=== PATIENT | male | born 1970 | race Caucasian/White ===

== ENCOUNTER 2021-09-06 13:27 | Inpatient (IN) | payer OTHER ==
[2021-09-06 14:55] VITALS: BMI 22.3
[2021-09-06] MEDS ORDERED: MELATONIN 5 MG TABLETS PO PRN (17:45)
[2021-09-06] MEDS ORDERED: BENZOCAINE/MENTHOL (CHLORASEPTIC ) LOZENGE MM PRN (17:45)
[2021-09-06] MEDS ORDERED: IBUPROFEN 600 MG TABLET (FP) PO PRN (17:45)
[2021-09-06] MEDS ORDERED: DICYCLOMINE HCL 10 MG CAPSULE PO PRN (17:45)
[2021-09-06] MEDS ORDERED: ONDANSETRON *ODT* 4 MG TABLET SL PRN (17:45)
[2021-09-06] MEDS ORDERED: BISMUTH SUBSALICYLATE 524 MG/30 ML PO PRN (17:45)
[2021-09-06] MEDS ORDERED: LOPERAMIDE HCL 2 MG CAPSULE PO PRN (17:45)
[2021-09-06] MEDS ORDERED: MAGNESIUM CITRATE 300 ML BOTTLE PO PRN (17:45)
[2021-09-06] MEDS ORDERED: MAG HYDROX/AL HYDROX/SIMETH 30 ML UNIT-DOSE CUP PO PRN (17:45)
[2021-09-06] MEDS ORDERED: IBUPROFEN 400 MG TABLET (FP) PO PRN (17:45)
[2021-09-06] MEDS ORDERED: ACETAMINOPHEN 325 MG TABLET (FP) PO PRN ×2 (17:45)
[2021-09-06] MEDS ORDERED: MAGNESIUM HYDROX 2400MG/30ML ORAL SUSPENSION 30 ML CUP PO PRN (17:45)
[2021-09-06] MEDS ORDERED: chlordiazePOXIDE HCL 25 MG CAPSULE PO PRN (17:49)
[2021-09-06] MEDS ORDERED: CLINDAMYCIN HCL 300 MG CAPSULE PO SCH (18:00)
[2021-09-06] MEDS: BACITRACIN 0.9 GM PACKET TP SCH (22:59)
[2021-09-06] MEDS: chlordiazePOXIDE HCL 25 MG CAPSULE PO SCH (22:59)
[2021-09-06] MEDS: THIAMINE HCL 100 MG TABLET (FP) PO SCH (23:01)
[2021-09-07] MEDS: CLINDAMYCIN HCL 150 MG CAPSULE (FP) PO SCH ×4 (00:01→17:16)
[2021-09-07] MEDS: chlordiazePOXIDE HCL 25 MG CAPSULE PO SCH ×4 (05:12→22:48)
[2021-09-07] MEDS: METHOCARBAMOL 500 MG TABLET PO PRN ×2 (10:38→16:44)
[2021-09-07] MEDS: PRENATAL VITAMINS W/ FOLIC ACID TABLET (FP) PO SCH (10:38)
[2021-09-07] MEDS: hydrOXYzine PAMOATE 25 MG CAPSULE (FP) PO PRN ×3 (10:38→22:47)
[2021-09-07] MEDS: BACITRACIN 0.9 GM PACKET TP SCH ×2 (10:38→22:47)
[2021-09-07] MEDS: SERTRALINE HCL 50 MG TABLET (FP) PO SCH (10:38)
[2021-09-07] MEDS ORDERED: methaDONE HCL 10 MG TABLET PO SCH (11:00)
[2021-09-07] MEDS ORDERED: methaDONE HCL 40 MG DISPERSABLE TABLET ONE (11:31)
[2021-09-07] MEDS ORDERED: methaDONE HCL 10 MG TABLET ONE (11:31)
[2021-09-07 14:22] LABS: CALCIUM 8.9 mg/dL (8.5-10.1)
[2021-09-07 14:23] LABS: ALBUMIN 2.9 g/dl (3.4-5.0); BLOOD UREA NITROGEN 10.2 mg/dL (7-18)
[2021-09-07 14:26] LABS: CREATININE 0.9 mg/dL (0.55-1.3)
[2021-09-07 14:27] LABS: BILIRUBIN,TOTAL 0.2 mg/dL (0.2-1); TOT PROT 6.5 g/dl (6.4-8.2)
[2021-09-07 14:39] LABS: HEMATOCRIT 39.1 % (35.4-49); MCHC 33.4 g/dl (32.0-35.9); MEAN CELL VOLUME 86.8 fl (80-96); MEAN PLT VOLUME 8.4 fl (7.5-11.1); RDW 13.5 % (11.9-15.9)
[2021-09-07] MEDS: THIAMINE HCL 100 MG TABLET (FP) PO SCH (22:47)
[2021-09-08] MEDS: CLINDAMYCIN HCL 150 MG CAPSULE (FP) PO SCH ×5 (01:00→23:00)
[2021-09-08] MEDS ORDERED: methaDONE HCL 10 MG TABLET ONE (04:10)
[2021-09-08] MEDS ORDERED: methaDONE HCL 40 MG DISPERSABLE TABLET ONE (04:10)
[2021-09-08] MEDS: NICOTINE 10 MG CARTRIDGE (INHALER) IH PRN ×3 (04:53→22:38)
[2021-09-08] MEDS: METHOCARBAMOL 500 MG TABLET PO PRN ×3 (04:53→18:00)
[2021-09-08] MEDS: chlordiazePOXIDE HCL 25 MG CAPSULE PO SCH ×4 (05:23→22:35)
[2021-09-08] MEDS: SERTRALINE HCL 50 MG TABLET (FP) PO SCH (10:35)
[2021-09-08] MEDS: PRENATAL VITAMINS W/ FOLIC ACID TABLET (FP) PO SCH (10:35)
[2021-09-08] MEDS: BACITRACIN 0.9 GM PACKET TP SCH ×2 (10:35→22:42)
[2021-09-08] MEDS ORDERED: cloNIDine HCL 0.1 MG TABLET PO ONE (14:40)
[2021-09-08] MEDS: THIAMINE HCL 100 MG TABLET (FP) PO SCH (22:35)
[2021-09-08] MEDS: cloNIDine HCL 0.1 MG TABLET PO SCH (22:35)
[2021-09-08] MEDS: SUVOREXANT 10 MG TABLET PO PRN (22:41)
[2021-09-09] MEDS ORDERED: chlordiazePOXIDE HCL 10 MG CAPSULE PO PRN
[2021-09-09] MEDS ORDERED: methaDONE HCL 10 MG TABLET ONE (04:06)
[2021-09-09] MEDS ORDERED: methaDONE HCL 40 MG DISPERSABLE TABLET ONE (04:07)
[2021-09-09] MEDS: CLINDAMYCIN HCL 150 MG CAPSULE (FP) PO SCH ×4 (05:05→23:00)
[2021-09-09] MEDS: chlordiazePOXIDE HCL 10 MG CAPSULE PO SCH ×4 (05:13→22:15)
[2021-09-09] MEDS: NICOTINE 10 MG CARTRIDGE (INHALER) IH PRN ×3 (05:15→22:17)
[2021-09-09] MEDS: PRENATAL VITAMINS W/ FOLIC ACID TABLET (FP) PO SCH (10:12)
[2021-09-09] MEDS: BACITRACIN 0.9 GM PACKET TP SCH ×2 (10:12→22:15)
[2021-09-09] MEDS: cloNIDine HCL 0.1 MG TABLET PO SCH ×2 (10:13→22:14)
[2021-09-09] MEDS: SERTRALINE HCL 50 MG TABLET (FP) PO SCH (10:13)
[2021-09-09] MEDS: hydrOXYzine PAMOATE 25 MG CAPSULE (FP) PO PRN (14:50)
[2021-09-09] MEDS: THIAMINE HCL 100 MG TABLET (FP) PO SCH (22:14)
[2021-09-09] MEDS: SUVOREXANT 10 MG TABLET PO PRN (22:15)
[2021-09-10] MEDS ORDERED: methaDONE HCL 10 MG TABLET ONE (04:03)
[2021-09-10] MEDS ORDERED: methaDONE HCL 40 MG DISPERSABLE TABLET ONE (04:03)
[2021-09-10] MEDS: chlordiazePOXIDE HCL 10 MG CAPSULE PO SCH ×2 (05:11→17:00)
[2021-09-10] MEDS: CLINDAMYCIN HCL 150 MG CAPSULE (FP) PO SCH ×3 (05:11→18:00)
[2021-09-10] MEDS: PRENATAL VITAMINS W/ FOLIC ACID TABLET (FP) PO SCH (10:11)
[2021-09-10] MEDS: SERTRALINE HCL 50 MG TABLET (FP) PO SCH (10:12)
[2021-09-10] MEDS: cloNIDine HCL 0.1 MG TABLET PO SCH ×2 (10:12→22:04)
[2021-09-10] MEDS: BACITRACIN 0.9 GM PACKET TP SCH ×2 (10:12→22:06)
[2021-09-10] MEDS: METHOCARBAMOL 500 MG TABLET PO PRN ×2 (10:12→22:04)
[2021-09-10] MEDS: NICOTINE 10 MG CARTRIDGE (INHALER) IH PRN ×3 (10:20→22:08)
[2021-09-10] MEDS: hydrOXYzine PAMOATE 25 MG CAPSULE (FP) PO PRN ×2 (14:11→22:06)
[2021-09-10] MEDS ORDERED: ALBUTEROL SO4 HFA INHALER IH PRN (18:43)
[2021-09-10] MEDS: THIAMINE HCL 100 MG TABLET (FP) PO SCH (22:04)
[2021-09-11] MEDS: CLINDAMYCIN HCL 150 MG CAPSULE (FP) PO SCH ×3 (01:00→13:09)
[2021-09-11] MEDS ORDERED: methaDONE HCL 40 MG DISPERSABLE TABLET ONE (04:04)
[2021-09-11] MEDS ORDERED: methaDONE HCL 10 MG TABLET ONE (04:04)
[2021-09-11] MEDS ORDERED: chlordiazePOXIDE HCL 10 MG CAPSULE PO ONE (05:00)
[2021-09-11] MEDS: NICOTINE 10 MG CARTRIDGE (INHALER) IH PRN (05:17)
[2021-09-11] MEDS: BACITRACIN 0.9 GM PACKET TP SCH (10:46)
[2021-09-11] MEDS: cloNIDine HCL 0.1 MG TABLET PO SCH (10:46)
[2021-09-11] MEDS: PRENATAL VITAMINS W/ FOLIC ACID TABLET (FP) PO SCH (10:46)
[2021-09-11] MEDS: SERTRALINE HCL 50 MG TABLET (FP) PO SCH (10:46)
[2021-09-11 12:56] VITALS: BP 112/74; PULSE 60; TEMP 97.5
[2021-09-11] MEDS: hydrOXYzine PAMOATE 25 MG CAPSULE (FP) PO PRN (13:12)
== END 2021-09-11 14:04 | disposition other institution (70) | DRG 773 ==
LOC: YASAS 13:27 → Y6N 20:51
PROVIDERS: ADMIT Allergy & Immunology; ATTEND Surgery
PROC: HZ2ZZZZ Detoxification Services for Substance Abuse Treatment (ICD-10-PCS; principal; 2021-09-06)
DX: F10.230 Alcohol dependence with withdrawal, uncomplicated (principal); F11.20 Opioid dependence, uncomplicated; F14.20 Cocaine dependence, uncomplicated; F13.20 Sedative, hypnotic or anxiolytic dependence, uncomplicated; F17.210 Nicotine dependence, cigarettes, uncomplicated; F31.81 Bipolar II disorder; F19.280 Other psychoactive substance dependence with psychoactive substance-induced anxiety disorder; F19.282 Other psychoactive substance dependence with psychoactive substance-induced sleep disorder; F19.24 Other psychoactive substance dependence with psychoactive substance-induced mood disorder; F41.9 Anxiety disorder, unspecified; F32.A Depression, unspecified; I10 Essential (primary) hypertension; J45.909 Unspecified asthma, uncomplicated; L03.115 Cellulitis of right lower limb; Z28.310 Unvaccinated for COVID-19; Z56.0 Unemployment, unspecified; Z59.00 Homelessness unspecified; Z91.013 Allergy to seafood
CPT/HCPCS: 36415; 73590-TC-LT-FY; 80053; 85027; 86780; C9803-CS; J0735; U0003; U0005

== ENCOUNTER 2021-09-11 14:20 | Inpatient (IN) | payer OTHER ==
[2021-09-11] MEDS ORDERED: P-EPHED 60MG/TRIPROLIDI 2.5MG TABLET PO PRN (15:33)
[2021-09-11] MEDS ORDERED: MELATONIN 5 MG TABLETS PO PRN (15:33)
[2021-09-11] MEDS ORDERED: guaiFENesin 200 MG/10 ML 10 ML UNIT-DOSE CUPS PO PRN (15:33)
[2021-09-11] MEDS ORDERED: MAGNESIUM CITRATE 300 ML BOTTLE PO PRN (15:33)
[2021-09-11] MEDS ORDERED: LOPERAMIDE HCL 2 MG CAPSULE PO PRN (15:33)
[2021-09-11] MEDS ORDERED: BENZOCAINE/MENTHOL (CHLORASEPTIC ) LOZENGE MM PRN (15:33)
[2021-09-11] MEDS ORDERED: MAGNESIUM HYDROX 2400MG/30ML ORAL SUSPENSION 30 ML CUP PO PRN (15:33)
[2021-09-11] MEDS ORDERED: MAG HYDROX/AL HYDROX/SIMETH 30 ML UNIT-DOSE CUP PO PRN (15:33)
[2021-09-11] MEDS: THIAMINE HCL 100 MG TABLET (FP) PO SCH (21:05)
[2021-09-11] MEDS: hydrOXYzine PAMOATE 25 MG CAPSULE (FP) PO PRN (21:06)
[2021-09-12] MEDS ORDERED: methaDONE HCL 40 MG DISPERSABLE TABLET ONE (05:36)
[2021-09-12] MEDS ORDERED: methaDONE HCL 10 MG TABLET ONE (05:36)
[2021-09-12] MEDS ORDERED: methaDONE HCL 40 MG DISPERSABLE TABLET PO SCH (06:00)
[2021-09-12] MEDS: cloNIDine HCL 0.1 MG TABLET PO SCH ×2 (09:43→21:12)
[2021-09-12] MEDS: PRENATAL VITAMINS W/ FOLIC ACID TABLET (FP) PO SCH (09:43)
[2021-09-12] MEDS: SERTRALINE HCL 50 MG TABLET (FP) PO SCH (10:46)
[2021-09-12] MEDS: NICOTINE 10 MG CARTRIDGE (INHALER) IH PRN ×3 (10:46→21:13)
[2021-09-12] MEDS: hydrOXYzine PAMOATE 25 MG CAPSULE (FP) PO PRN (18:49)
[2021-09-12] MEDS: SUVOREXANT 10 MG TABLET PO PRN (21:12)
[2021-09-12] MEDS: THIAMINE HCL 100 MG TABLET (FP) PO SCH (21:13)
[2021-09-13] MEDS ORDERED: methaDONE HCL 10 MG TABLET ONE (03:22)
[2021-09-13] MEDS ORDERED: methaDONE HCL 40 MG DISPERSABLE TABLET ONE (03:22)
[2021-09-13] MEDS ORDERED: cloNIDine HCL 0.1 MG TABLET PO ONE (06:22)
[2021-09-13] MEDS: hydrOXYzine PAMOATE 25 MG CAPSULE (FP) PO PRN (06:26)
[2021-09-13] MEDS: NICOTINE 10 MG CARTRIDGE (INHALER) IH PRN ×3 (06:27→14:19)
[2021-09-13] MEDS: PRENATAL VITAMINS W/ FOLIC ACID TABLET (FP) PO SCH (10:07)
[2021-09-13] MEDS: cloNIDine HCL 0.1 MG TABLET PO SCH ×2 (10:07→21:22)
[2021-09-13] MEDS: SERTRALINE HCL 50 MG TABLET (FP) PO SCH (10:07)
[2021-09-13] MEDS: THIAMINE HCL 100 MG TABLET (FP) PO SCH (21:22)
[2021-09-13] MEDS: SUVOREXANT 10 MG TABLET PO PRN (21:22)
[2021-09-14] MEDS ORDERED: methaDONE HCL 10 MG TABLET ONE (05:23)
[2021-09-14] MEDS ORDERED: methaDONE HCL 40 MG DISPERSABLE TABLET ONE (05:23)
[2021-09-14] MEDS: NICOTINE 10 MG CARTRIDGE (INHALER) IH PRN ×3 (06:24→21:25)
[2021-09-14] MEDS: hydrOXYzine PAMOATE 25 MG CAPSULE (FP) PO PRN ×2 (06:25→21:25)
[2021-09-14] MEDS: PRENATAL VITAMINS W/ FOLIC ACID TABLET (FP) PO SCH (10:51)
[2021-09-14] MEDS: SERTRALINE HCL 50 MG TABLET (FP) PO SCH (10:51)
[2021-09-14] MEDS: cloNIDine HCL 0.1 MG TABLET PO SCH ×2 (10:51→21:24)
[2021-09-14] MEDS: THIAMINE HCL 100 MG TABLET (FP) PO SCH (21:23)
[2021-09-14] MEDS: SUVOREXANT 10 MG TABLET PO PRN (21:24)
[2021-09-15] MEDS ORDERED: methaDONE HCL 10 MG TABLET ONE (04:06)
[2021-09-15] MEDS ORDERED: methaDONE HCL 40 MG DISPERSABLE TABLET ONE (04:06)
[2021-09-15] MEDS: hydrOXYzine PAMOATE 25 MG CAPSULE (FP) PO PRN ×3 (06:32→21:19)
[2021-09-15] MEDS: NICOTINE 10 MG CARTRIDGE (INHALER) IH PRN ×2 (06:33→21:19)
[2021-09-15] MEDS: cloNIDine HCL 0.1 MG TABLET PO SCH ×2 (10:01→21:19)
[2021-09-15] MEDS: PRENATAL VITAMINS W/ FOLIC ACID TABLET (FP) PO SCH (10:01)
[2021-09-15] MEDS: SERTRALINE HCL 50 MG TABLET (FP) PO SCH (10:01)
[2021-09-15] MEDS: THIAMINE HCL 100 MG TABLET (FP) PO SCH (21:18)
[2021-09-15] MEDS: SUVOREXANT 10 MG TABLET PO PRN (21:19)
[2021-09-16] MEDS ORDERED: methaDONE HCL 40 MG DISPERSABLE TABLET ONE (04:55)
[2021-09-16] MEDS ORDERED: methaDONE HCL 10 MG TABLET ONE (04:55)
[2021-09-16] MEDS: hydrOXYzine PAMOATE 25 MG CAPSULE (FP) PO PRN ×2 (06:03→21:22)
[2021-09-16] MEDS: SERTRALINE HCL 50 MG TABLET (FP) PO SCH (11:03)
[2021-09-16] MEDS: PRENATAL VITAMINS W/ FOLIC ACID TABLET (FP) PO SCH (11:04)
[2021-09-16] MEDS: cloNIDine HCL 0.1 MG TABLET PO SCH ×2 (11:04→21:21)
[2021-09-16] MEDS: NICOTINE 10 MG CARTRIDGE (INHALER) IH PRN ×2 (11:04→21:22)
[2021-09-16] MEDS: THIAMINE HCL 100 MG TABLET (FP) PO SCH (21:21)
[2021-09-16] MEDS: SUVOREXANT 10 MG TABLET PO PRN (21:21)
[2021-09-17] MEDS ORDERED: methaDONE HCL 10 MG TABLET ONE (05:45)
[2021-09-17] MEDS ORDERED: methaDONE HCL 40 MG DISPERSABLE TABLET ONE (05:45)
[2021-09-17] MEDS: hydrOXYzine PAMOATE 25 MG CAPSULE (FP) PO PRN ×2 (06:39→21:08)
[2021-09-17] MEDS: NICOTINE 10 MG CARTRIDGE (INHALER) IH PRN ×2 (10:15→21:08)
[2021-09-17] MEDS: SERTRALINE HCL 50 MG TABLET (FP) PO SCH (10:16)
[2021-09-17] MEDS: PRENATAL VITAMINS W/ FOLIC ACID TABLET (FP) PO SCH (10:16)
[2021-09-17] MEDS: cloNIDine HCL 0.1 MG TABLET PO SCH ×2 (10:16→21:07)
[2021-09-17] MEDS: THIAMINE HCL 100 MG TABLET (FP) PO SCH (21:06)
[2021-09-17] MEDS: SUVOREXANT 10 MG TABLET PO PRN (21:07)
[2021-09-18] MEDS ORDERED: methaDONE HCL 10 MG TABLET ONE (03:27)
[2021-09-18] MEDS ORDERED: methaDONE HCL 40 MG DISPERSABLE TABLET ONE (03:27)
[2021-09-18] MEDS: SERTRALINE HCL 50 MG TABLET (FP) PO SCH (11:01)
[2021-09-18] MEDS: NICOTINE 10 MG CARTRIDGE (INHALER) IH PRN (11:02)
[2021-09-18] MEDS: hydrOXYzine PAMOATE 25 MG CAPSULE (FP) PO PRN (11:02)
[2021-09-18] MEDS: PRENATAL VITAMINS W/ FOLIC ACID TABLET (FP) PO SCH (11:02)
[2021-09-18] MEDS: cloNIDine HCL 0.1 MG TABLET PO SCH ×2 (11:02→21:21)
[2021-09-18] MEDS: THIAMINE HCL 100 MG TABLET (FP) PO SCH (21:20)
[2021-09-18] MEDS: SUVOREXANT 10 MG TABLET PO PRN (21:21)
[2021-09-19] MEDS ORDERED: methaDONE HCL 40 MG DISPERSABLE TABLET ONE (03:10)
[2021-09-19] MEDS ORDERED: methaDONE HCL 10 MG TABLET ONE (03:10)
[2021-09-19] MEDS ORDERED: methaDONE HCL 10 MG TABLET PO SCH (06:00)
[2021-09-19] MEDS: cloNIDine HCL 0.1 MG TABLET PO SCH ×2 (07:20→21:16)
[2021-09-19] MEDS: PRENATAL VITAMINS W/ FOLIC ACID TABLET (FP) PO SCH (10:28)
[2021-09-19] MEDS: SERTRALINE HCL 50 MG TABLET (FP) PO SCH (10:28)
[2021-09-19] MEDS: hydrOXYzine PAMOATE 25 MG CAPSULE (FP) PO PRN ×2 (10:28→21:18)
[2021-09-19] MEDS: NICOTINE 10 MG CARTRIDGE (INHALER) IH PRN (10:29)
[2021-09-19] MEDS: THIAMINE HCL 100 MG TABLET (FP) PO SCH (21:16)
[2021-09-20] MEDS ORDERED: methaDONE HCL 10 MG TABLET ONE (03:08)
[2021-09-20] MEDS ORDERED: methaDONE HCL 40 MG DISPERSABLE TABLET ONE (03:09)
[2021-09-20] MEDS: cloNIDine HCL 0.1 MG TABLET PO SCH ×2 (05:54→21:11)
[2021-09-20] MEDS: NICOTINE 10 MG CARTRIDGE (INHALER) IH PRN ×2 (06:42→21:12)
[2021-09-20] MEDS: SERTRALINE HCL 50 MG TABLET (FP) PO SCH (10:51)
[2021-09-20] MEDS: PRENATAL VITAMINS W/ FOLIC ACID TABLET (FP) PO SCH (10:51)
[2021-09-20] MEDS: THIAMINE HCL 100 MG TABLET (FP) PO SCH (21:11)
[2021-09-20] MEDS: SUVOREXANT 10 MG TABLET PO PRN (21:12)
[2021-09-21] MEDS ORDERED: methaDONE HCL 40 MG DISPERSABLE TABLET ONE (03:02)
[2021-09-21] MEDS ORDERED: methaDONE HCL 10 MG TABLET ONE (03:02)
[2021-09-21] MEDS: cloNIDine HCL 0.1 MG TABLET PO SCH ×2 (06:12→21:01)
[2021-09-21] MEDS: PRENATAL VITAMINS W/ FOLIC ACID TABLET (FP) PO SCH (11:25)
[2021-09-21] MEDS: NICOTINE 10 MG CARTRIDGE (INHALER) IH PRN ×2 (11:26→21:33)
[2021-09-21] MEDS: hydrOXYzine PAMOATE 25 MG CAPSULE (FP) PO PRN ×2 (11:26→21:01)
[2021-09-21] MEDS: SERTRALINE HCL 50 MG TABLET (FP) PO SCH (11:26)
[2021-09-21] MEDS: THIAMINE HCL 100 MG TABLET (FP) PO SCH (21:01)
[2021-09-22] MEDS ORDERED: methaDONE HCL 10 MG TABLET ONE (02:29)
[2021-09-22] MEDS ORDERED: methaDONE HCL 40 MG DISPERSABLE TABLET ONE (02:30)
[2021-09-22] MEDS: cloNIDine HCL 0.1 MG TABLET PO SCH ×2 (06:09→21:08)
[2021-09-22] MEDS: NICOTINE 10 MG CARTRIDGE (INHALER) IH PRN (10:45)
[2021-09-22] MEDS: SERTRALINE HCL 50 MG TABLET (FP) PO SCH (10:45)
[2021-09-22] MEDS: PRENATAL VITAMINS W/ FOLIC ACID TABLET (FP) PO SCH (10:45)
[2021-09-22] MEDS: THIAMINE HCL 100 MG TABLET (FP) PO SCH (21:08)
[2021-09-22] MEDS: hydrOXYzine PAMOATE 25 MG CAPSULE (FP) PO PRN (21:09)
[2021-09-23] MEDS ORDERED: methaDONE HCL 10 MG TABLET ONE (06:12)
[2021-09-23] MEDS ORDERED: methaDONE HCL 40 MG DISPERSABLE TABLET ONE (06:13)
[2021-09-23] MEDS: NICOTINE 10 MG CARTRIDGE (INHALER) IH PRN ×2 (06:15→21:07)
[2021-09-23] MEDS: cloNIDine HCL 0.1 MG TABLET PO SCH ×2 (06:15→21:08)
[2021-09-23] MEDS: PRENATAL VITAMINS W/ FOLIC ACID TABLET (FP) PO SCH (09:54)
[2021-09-23] MEDS: SERTRALINE HCL 50 MG TABLET (FP) PO SCH (09:54)
[2021-09-23] MEDS: hydrOXYzine PAMOATE 25 MG CAPSULE (FP) PO PRN ×2 (09:55→21:09)
[2021-09-23] MEDS: THIAMINE HCL 100 MG TABLET (FP) PO SCH (21:08)
[2021-09-24] MEDS ORDERED: methaDONE HCL 10 MG TABLET ONE (06:04)
[2021-09-24] MEDS ORDERED: methaDONE HCL 40 MG DISPERSABLE TABLET ONE (06:04)
[2021-09-24] MEDS: cloNIDine HCL 0.1 MG TABLET PO SCH ×2 (06:07→21:34)
[2021-09-24] MEDS: NICOTINE 10 MG CARTRIDGE (INHALER) IH PRN ×3 (06:08→21:35)
[2021-09-24] MEDS: PRENATAL VITAMINS W/ FOLIC ACID TABLET (FP) PO SCH (09:35)
[2021-09-24] MEDS: SERTRALINE HCL 50 MG TABLET (FP) PO SCH (09:35)
[2021-09-24] MEDS: THIAMINE HCL 100 MG TABLET (FP) PO SCH (21:34)
[2021-09-24] MEDS: hydrOXYzine PAMOATE 25 MG CAPSULE (FP) PO PRN (21:35)
[2021-09-25] MEDS ORDERED: methaDONE HCL 40 MG DISPERSABLE TABLET ONE (03:13)
[2021-09-25] MEDS ORDERED: methaDONE HCL 10 MG TABLET ONE (03:13)
[2021-09-25] MEDS: cloNIDine HCL 0.1 MG TABLET PO SCH ×2 (06:01→21:14)
[2021-09-25] MEDS: NICOTINE 10 MG CARTRIDGE (INHALER) IH PRN ×3 (06:04→21:14)
[2021-09-25] MEDS: PRENATAL VITAMINS W/ FOLIC ACID TABLET (FP) PO SCH (10:24)
[2021-09-25] MEDS: SERTRALINE HCL 50 MG TABLET (FP) PO SCH (10:25)
[2021-09-25] MEDS: THIAMINE HCL 100 MG TABLET (FP) PO SCH (21:14)
[2021-09-26] MEDS ORDERED: methaDONE HCL 10 MG TABLET ONE (04:05)
[2021-09-26] MEDS ORDERED: methaDONE HCL 40 MG DISPERSABLE TABLET ONE (04:05)
[2021-09-26] MEDS: cloNIDine HCL 0.1 MG TABLET PO SCH ×2 (05:48→21:09)
[2021-09-26] MEDS: NICOTINE 10 MG CARTRIDGE (INHALER) IH PRN ×4 (05:51→21:09)
[2021-09-26] MEDS: SERTRALINE HCL 50 MG TABLET (FP) PO SCH (10:08)
[2021-09-26] MEDS: PRENATAL VITAMINS W/ FOLIC ACID TABLET (FP) PO SCH (10:08)
[2021-09-26] MEDS: THIAMINE HCL 100 MG TABLET (FP) PO SCH (21:09)
[2021-09-27] MEDS ORDERED: methaDONE HCL 40 MG DISPERSABLE TABLET ONE (03:58)
[2021-09-27] MEDS ORDERED: methaDONE HCL 10 MG TABLET ONE (03:58)
[2021-09-27] MEDS: cloNIDine HCL 0.1 MG TABLET PO SCH ×2 (06:10→21:31)
[2021-09-27] MEDS: PRENATAL VITAMINS W/ FOLIC ACID TABLET (FP) PO SCH (10:59)
[2021-09-27] MEDS: SERTRALINE HCL 50 MG TABLET (FP) PO SCH (11:00)
[2021-09-27] MEDS: ACETAMINOPHEN 325 MG TABLET (FP) PO PRN (14:36)
[2021-09-27] MEDS: THIAMINE HCL 100 MG TABLET (FP) PO SCH (21:32)
[2021-09-28] MEDS ORDERED: methaDONE HCL 40 MG DISPERSABLE TABLET ONE (05:47)
[2021-09-28] MEDS ORDERED: methaDONE HCL 10 MG TABLET ONE (05:47)
[2021-09-28] MEDS: cloNIDine HCL 0.1 MG TABLET PO SCH ×2 (05:47→21:21)
[2021-09-28] MEDS: SERTRALINE HCL 50 MG TABLET (FP) PO SCH (10:11)
[2021-09-28] MEDS: PRENATAL VITAMINS W/ FOLIC ACID TABLET (FP) PO SCH (10:11)
[2021-09-28] MEDS: NICOTINE 10 MG CARTRIDGE (INHALER) IH PRN ×2 (10:12→17:03)
[2021-09-28] MEDS: THIAMINE HCL 100 MG TABLET (FP) PO SCH (21:21)
[2021-09-29] MEDS ORDERED: methaDONE HCL 10 MG TABLET ONE (05:55)
[2021-09-29] MEDS ORDERED: methaDONE HCL 40 MG DISPERSABLE TABLET ONE (05:55)
[2021-09-29] MEDS: cloNIDine HCL 0.1 MG TABLET PO SCH ×2 (05:56→21:21)
[2021-09-29] MEDS: PRENATAL VITAMINS W/ FOLIC ACID TABLET (FP) PO SCH (10:36)
[2021-09-29] MEDS: SERTRALINE HCL 50 MG TABLET (FP) PO SCH (10:36)
[2021-09-29] MEDS: NICOTINE 10 MG CARTRIDGE (INHALER) IH PRN ×2 (10:36→21:21)
[2021-09-29] MEDS: THIAMINE HCL 100 MG TABLET (FP) PO SCH (21:21)
[2021-09-30] MEDS ORDERED: methaDONE HCL 40 MG DISPERSABLE TABLET ONE (05:53)
[2021-09-30] MEDS ORDERED: methaDONE HCL 10 MG TABLET ONE (05:53)
[2021-09-30] MEDS: cloNIDine HCL 0.1 MG TABLET PO SCH ×2 (05:54→21:10)
[2021-09-30] MEDS: SERTRALINE HCL 50 MG TABLET (FP) PO SCH (09:49)
[2021-09-30] MEDS: PRENATAL VITAMINS W/ FOLIC ACID TABLET (FP) PO SCH (09:49)
[2021-09-30] MEDS: NICOTINE 10 MG CARTRIDGE (INHALER) IH PRN (09:49)
[2021-09-30] MEDS: THIAMINE HCL 100 MG TABLET (FP) PO SCH (21:10)
[2021-10-01] MEDS ORDERED: methaDONE HCL 10 MG TABLET ONE (06:03)
[2021-10-01] MEDS ORDERED: methaDONE HCL 40 MG DISPERSABLE TABLET ONE (06:03)
[2021-10-01] MEDS: cloNIDine HCL 0.1 MG TABLET PO SCH ×2 (06:04→21:49)
[2021-10-01] MEDS: NICOTINE 10 MG CARTRIDGE (INHALER) IH PRN ×3 (06:07→20:51)
[2021-10-01] MEDS: SERTRALINE HCL 50 MG TABLET (FP) PO SCH (10:08)
[2021-10-01] MEDS: PRENATAL VITAMINS W/ FOLIC ACID TABLET (FP) PO SCH (10:08)
[2021-10-01] MEDS: THIAMINE HCL 100 MG TABLET (FP) PO SCH (21:49)
[2021-10-02] MEDS ORDERED: methaDONE HCL 10 MG TABLET ONE (03:56)
[2021-10-02] MEDS ORDERED: methaDONE HCL 40 MG DISPERSABLE TABLET ONE (03:57)
[2021-10-02] MEDS: cloNIDine HCL 0.1 MG TABLET PO SCH ×2 (06:10→21:39)
[2021-10-02] MEDS: PRENATAL VITAMINS W/ FOLIC ACID TABLET (FP) PO SCH (10:01)
[2021-10-02] MEDS: SERTRALINE HCL 50 MG TABLET (FP) PO SCH (10:01)
[2021-10-02] MEDS: NICOTINE 10 MG CARTRIDGE (INHALER) IH PRN ×2 (10:01→13:04)
[2021-10-02] MEDS: IBUPROFEN 400 MG TABLET (FP) PO PRN (10:03)
[2021-10-02] MEDS: THIAMINE HCL 100 MG TABLET (FP) PO SCH (21:40)
[2021-10-03] MEDS ORDERED: methaDONE HCL 10 MG TABLET PO SCH (06:00)
[2021-10-03] MEDS: cloNIDine HCL 0.1 MG TABLET PO SCH ×2 (06:30→21:24)
[2021-10-03] MEDS ORDERED: methaDONE HCL 10 MG TABLET ONE (06:31)
[2021-10-03] MEDS ORDERED: methaDONE HCL 40 MG DISPERSABLE TABLET ONE (06:31)
[2021-10-03] MEDS: NICOTINE 10 MG CARTRIDGE (INHALER) IH PRN ×3 (06:38→21:24)
[2021-10-03] MEDS: IBUPROFEN 400 MG TABLET (FP) PO PRN (06:39)
[2021-10-03] MEDS: SERTRALINE HCL 50 MG TABLET (FP) PO SCH (09:38)
[2021-10-03] MEDS: PRENATAL VITAMINS W/ FOLIC ACID TABLET (FP) PO SCH (09:38)
[2021-10-03] MEDS: THIAMINE HCL 100 MG TABLET (FP) PO SCH (21:24)
[2021-10-04] MEDS ORDERED: methaDONE HCL 10 MG TABLET ONE (04:46)
[2021-10-04] MEDS ORDERED: methaDONE HCL 40 MG DISPERSABLE TABLET ONE (04:46)
[2021-10-04] MEDS: cloNIDine HCL 0.1 MG TABLET PO SCH ×2 (06:17→21:19)
[2021-10-04] MEDS: NICOTINE 10 MG CARTRIDGE (INHALER) IH PRN ×4 (06:21→21:20)
[2021-10-04] MEDS: PRENATAL VITAMINS W/ FOLIC ACID TABLET (FP) PO SCH (10:20)
[2021-10-04] MEDS: SERTRALINE HCL 50 MG TABLET (FP) PO SCH (10:20)
[2021-10-04] MEDS: IBUPROFEN 400 MG TABLET (FP) PO PRN (10:21)
[2021-10-04] MEDS: ACETAMINOPHEN 325 MG TABLET (FP) PO PRN (14:16)
[2021-10-04] MEDS: OFLOXACIN 0.3% OTIC SOLUTION 5 ML BOTTLE AS SCH (14:46)
[2021-10-04] MEDS: THIAMINE HCL 100 MG TABLET (FP) PO SCH (21:19)
[2021-10-05] MEDS ORDERED: methaDONE HCL 10 MG TABLET ONE (04:09)
[2021-10-05] MEDS ORDERED: methaDONE HCL 40 MG DISPERSABLE TABLET ONE (04:09)
[2021-10-05] MEDS: cloNIDine HCL 0.1 MG TABLET PO SCH ×2 (06:49→21:19)
[2021-10-05] MEDS: NICOTINE 10 MG CARTRIDGE (INHALER) IH PRN ×2 (07:12→21:18)
[2021-10-05] MEDS: IBUPROFEN 400 MG TABLET (FP) PO PRN (07:13)
[2021-10-05] MEDS: PRENATAL VITAMINS W/ FOLIC ACID TABLET (FP) PO SCH (10:03)
[2021-10-05] MEDS: SERTRALINE HCL 50 MG TABLET (FP) PO SCH (10:03)
[2021-10-05] MEDS: OFLOXACIN 0.3% OTIC SOLUTION 5 ML BOTTLE AS SCH (10:26)
[2021-10-05] MEDS: ACETAMINOPHEN 325 MG TABLET (FP) PO PRN (18:59)
[2021-10-05] MEDS: THIAMINE HCL 100 MG TABLET (FP) PO SCH (21:19)
[2021-10-06] MEDS ORDERED: methaDONE HCL 40 MG DISPERSABLE TABLET ONE (03:27)
[2021-10-06] MEDS ORDERED: methaDONE HCL 10 MG TABLET ONE (03:27)
[2021-10-06] MEDS: cloNIDine HCL 0.1 MG TABLET PO SCH ×2 (06:17→21:06)
[2021-10-06 07:03] VITALS: TEMP 97.8
[2021-10-06] MEDS: PRENATAL VITAMINS W/ FOLIC ACID TABLET (FP) PO SCH (10:37)
[2021-10-06] MEDS: OFLOXACIN 0.3% OTIC SOLUTION 5 ML BOTTLE AS SCH (10:37)
[2021-10-06] MEDS: SERTRALINE HCL 50 MG TABLET (FP) PO SCH (10:37)
[2021-10-06] MEDS: NICOTINE 10 MG CARTRIDGE (INHALER) IH PRN (10:38)
[2021-10-06] MEDS: THIAMINE HCL 100 MG TABLET (FP) PO SCH (21:06)
[2021-10-07] MEDS ORDERED: methaDONE HCL 40 MG DISPERSABLE TABLET ONE (05:32)
[2021-10-07] MEDS ORDERED: methaDONE HCL 10 MG TABLET ONE (05:32)
[2021-10-07] MEDS: cloNIDine HCL 0.1 MG TABLET PO SCH (06:00)
[2021-10-07] MEDS: NICOTINE 10 MG CARTRIDGE (INHALER) IH PRN (06:41)
[2021-10-07 07:16] VITALS: BP 128/91; PULSE 78
[2021-10-07] MEDS: PRENATAL VITAMINS W/ FOLIC ACID TABLET (FP) PO SCH (09:35)
[2021-10-07] MEDS: OFLOXACIN 0.3% OTIC SOLUTION 5 ML BOTTLE AS SCH (09:35)
[2021-10-07] MEDS: SERTRALINE HCL 50 MG TABLET (FP) PO SCH (09:36)
== END 2021-10-07 09:45 | disposition home or self-care (01) | DRG 772 ==
LOC: YASAS 14:20 → Y3W 14:21
PROVIDERS: ADMIT Allergy & Immunology; ATTEND Psychiatry & Neurology Pain Medicine
PROC: HZ42ZZZ Group Counseling for Substance Abuse Treatment, Cognitive-Behavioral (ICD-10-PCS; principal; 2021-09-11)
DX: F10.20 Alcohol dependence, uncomplicated (principal); F11.20 Opioid dependence, uncomplicated; F14.20 Cocaine dependence, uncomplicated; F13.20 Sedative, hypnotic or anxiolytic dependence, uncomplicated; F17.210 Nicotine dependence, cigarettes, uncomplicated; I10 Essential (primary) hypertension; J45.909 Unspecified asthma, uncomplicated; H66.92 Otitis media, unspecified, left ear
CPT/HCPCS: J0735

== ENCOUNTER 2023-01-05 14:33 | Inpatient (IN) | payer OTHER ==
[2023-01-05 14:57] VITALS: BMI 21.6
[2023-01-05] MEDS ORDERED: ONDANSETRON *ODT* 4 MG TABLET SL PRN (17:36)
[2023-01-05] MEDS ORDERED: LOPERAMIDE HCL 2 MG CAPSULE PO PRN (17:36)
[2023-01-05] MEDS ORDERED: ACETAMINOPHEN 325 MG TABLET (FP) PO PRN (17:36)
[2023-01-05] MEDS ORDERED: BISMUTH SUBSALICYLATE 524 MG/30 ML PO PRN (17:36)
[2023-01-05] MEDS ORDERED: BENZOCAINE/MENTHOL (CHLORASEPTIC ) LOZENGE MM PRN (17:36)
[2023-01-05] MEDS ORDERED: NALOXONE HCL 0.4 MG/ML VIAL IM PRN (17:36)
[2023-01-05] MEDS ORDERED: IBUPROFEN 600 MG TABLET (FP) PO PRN (17:36)
[2023-01-05] MEDS ORDERED: MAGNESIUM HYDROX 2400MG/30ML ORAL SUSPENSION 30 ML CUP PO PRN (17:36)
[2023-01-05] MEDS ORDERED: guaiFENesin 600 MG TABLET.ER (FP) PO PRN (17:36)
[2023-01-05] MEDS ORDERED: IBUPROFEN 400 MG TABLET (FP) PO PRN (17:36)
[2023-01-05] MEDS ORDERED: NALOXONE HCL (KLOXXADO) 8 MG SPRAY NS PRN (17:36)
[2023-01-05] MEDS ORDERED: POLYETHYLENE GLYCOL (HEALTHYLAX) 3350 17 GM PACKET PO PRN (17:36)
[2023-01-05] MEDS ORDERED: DICYCLOMINE HCL 10 MG CAPSULE PO PRN (17:36)
[2023-01-05] MEDS ORDERED: BENZONATATE 200 MG CAPSULE PO PRN (17:36)
[2023-01-05] MEDS ORDERED: MAG HYDROX/AL HYDROX/SIMETH 30 ML UNIT-DOSE CUP PO PRN (17:36)
[2023-01-05] MEDS ORDERED: diazePAM 5 MG TABLET PO PRN (17:36)
[2023-01-05] MEDS: hydrOXYzine PAMOATE 25 MG CAPSULE (FP) PO PRN (22:28)
[2023-01-05] MEDS: MELATONIN 5 MG TABLETS PO SCH (22:28)
[2023-01-05] MEDS: diazePAM 5 MG TABLET PO SCH (22:28)
[2023-01-05] MEDS: METHOCARBAMOL 500 MG TABLET PO PRN (22:28)
[2023-01-05] MEDS: THIAMINE HCL 100 MG TABLET (FP) PO SCH (22:29)
[2023-01-06] MEDS: diazePAM 5 MG TABLET PO SCH (05:37)
[2023-01-06] MEDS ORDERED: chlordiazePOXIDE HCL 25 MG CAPSULE PO PRN (08:29)
[2023-01-06] MEDS ORDERED: TRIMETHOBENZAMIDE HCL 200MG/2ML INJ IM ONE (09:00)
[2023-01-06] MEDS ORDERED: chlordiazePOXIDE HCL 25 MG CAPSULE PO ONE (09:15)
[2023-01-06] MEDS: cloNIDine HCL 0.1 MG TABLET PO SCH ×2 (09:18→23:38)
[2023-01-06] MEDS: PRENATAL VITAMINS W/ FOLIC ACID TABLET (FP) PO SCH (09:19)
[2023-01-06] MEDS: buPROPion HCL 100 MG TABLET PO SCH ×2 (09:45→17:35)
[2023-01-06] MEDS ORDERED: methaDONE HCL 40 MG DISPERSABLE TABLET PO SCH (10:00)
[2023-01-06] MEDS: chlordiazePOXIDE HCL 25 MG CAPSULE PO SCH ×2 (17:35→22:39)
[2023-01-06] MEDS: THIAMINE HCL 100 MG TABLET (FP) PO SCH (22:39)
[2023-01-06] MEDS: MELATONIN 5 MG TABLETS PO SCH (22:39)
[2023-01-07] MEDS: chlordiazePOXIDE HCL 25 MG CAPSULE PO SCH ×4 (05:36→22:07)
[2023-01-07] MEDS: buPROPion HCL 100 MG TABLET PO SCH ×2 (05:37→17:57)
[2023-01-07] MEDS ORDERED: diazePAM 5 MG TABLET PO SCH (06:00)
[2023-01-07] MEDS: PRENATAL VITAMINS W/ FOLIC ACID TABLET (FP) PO SCH (10:12)
[2023-01-07] MEDS: cloNIDine HCL 0.1 MG TABLET PO SCH ×2 (10:13→22:06)
[2023-01-07] MEDS: THIAMINE HCL 100 MG TABLET (FP) PO SCH (22:06)
[2023-01-07] MEDS: risperiDONE 1 MG TABLET PO SCH (22:09)
[2023-01-07] MEDS: SUVOREXANT 10 MG TABLET PO PRN (22:12)
[2023-01-08] MEDS: chlordiazePOXIDE HCL 25 MG CAPSULE PO SCH ×4 (05:47→22:14)
[2023-01-08] MEDS: buPROPion HCL 100 MG TABLET PO SCH ×2 (05:47→17:30)
[2023-01-08] MEDS ORDERED: diazePAM 5 MG TABLET PO SCH (06:00)
[2023-01-08] MEDS: PRENATAL VITAMINS W/ FOLIC ACID TABLET (FP) PO SCH (10:08)
[2023-01-08] MEDS: cloNIDine HCL 0.1 MG TABLET PO SCH ×2 (10:09→22:15)
[2023-01-08] MEDS: METHOCARBAMOL 500 MG TABLET PO PRN (10:09)
[2023-01-08] MEDS: hydrOXYzine PAMOATE 25 MG CAPSULE (FP) PO PRN (10:09)
[2023-01-08 10:33] LABS: HEMATOCRIT 39.5 % (35.4-49); HEMOGLOBIN 13.3 GM/dL (11.7-16.9); LYMPH % 40.9 % (8-40); MCH 28.6 pg (25.7-33.7); MCHC 33.5 g/dl (32.0-35.9); MEAN CELL VOLUME 85.3 fl (80-96); MEAN PLT VOLUME 8.4 fl (7.5-11.1); MONO % 6.8 % (3.8-10.2); NEUT % 46.3 % (42.8-82.8); PLATELET COUNT 209 10^3/uL (134-434); RBC 4.64 M/mm3 (4.00-5.60); RDW 13.4 % (11.9-15.9); WHITE BLOOD COUNT 4.9 K/mm3 (4.0-10.0)
[2023-01-08 11:28] LABS: POTASSIUM 3.5 mmol/L (3.5-5.1)
[2023-01-08 11:32] LABS: ALBUMIN 2.8 g/dl (3.4-5.0); CALCIUM 8.3 mg/dL (8.5-10.1)
[2023-01-08 11:35] LABS: CREATININE 0.9 mg/dL (0.55-1.3)
[2023-01-08 11:37] LABS: BILIRUBIN,TOTAL 0.3 mg/dL (0.2-1); TOT PROT 5.9 g/dl (6.4-8.2)
[2023-01-08] MEDS: THIAMINE HCL 100 MG TABLET (FP) PO SCH (22:14)
[2023-01-08] MEDS: risperiDONE 1 MG TABLET PO SCH (22:14)
[2023-01-08] MEDS: SUVOREXANT 10 MG TABLET PO PRN (22:15)
[2023-01-09] MEDS ORDERED: chlordiazePOXIDE HCL 10 MG CAPSULE PO PRN
[2023-01-09] MEDS: buPROPion HCL 100 MG TABLET PO SCH ×2 (05:23→17:30)
[2023-01-09] MEDS: chlordiazePOXIDE HCL 10 MG CAPSULE PO SCH ×4 (05:23→22:07)
[2023-01-09] MEDS ORDERED: diazePAM 5 MG TABLET PO ONE (06:00)
[2023-01-09] MEDS: cloNIDine HCL 0.1 MG TABLET PO SCH ×2 (10:05→22:05)
[2023-01-09] MEDS: PRENATAL VITAMINS W/ FOLIC ACID TABLET (FP) PO SCH (10:05)
[2023-01-09] MEDS: risperiDONE 1 MG TABLET PO SCH (22:05)
[2023-01-09] MEDS: THIAMINE HCL 100 MG TABLET (FP) PO SCH (22:07)
[2023-01-09] MEDS: SUVOREXANT 10 MG TABLET PO PRN (22:07)
[2023-01-10] MEDS: chlordiazePOXIDE HCL 10 MG CAPSULE PO SCH ×2 (05:21→17:05)
[2023-01-10] MEDS: buPROPion HCL 100 MG TABLET PO SCH ×2 (05:21→17:04)
[2023-01-10] MEDS: cloNIDine HCL 0.1 MG TABLET PO SCH ×2 (09:48→22:09)
[2023-01-10] MEDS: PRENATAL VITAMINS W/ FOLIC ACID TABLET (FP) PO SCH (09:48)
[2023-01-10] MEDS: risperiDONE 1 MG TABLET PO SCH (22:09)
[2023-01-10] MEDS: THIAMINE HCL 100 MG TABLET (FP) PO SCH (22:09)
[2023-01-10] MEDS: SUVOREXANT 10 MG TABLET PO PRN (22:09)
[2023-01-11] MEDS ORDERED: chlordiazePOXIDE HCL 10 MG CAPSULE PO ONE (05:00)
[2023-01-11] MEDS: buPROPion HCL 100 MG TABLET PO SCH (05:05)
[2023-01-11] MEDS: hydrOXYzine PAMOATE 25 MG CAPSULE (FP) PO PRN (05:06)
[2023-01-11 07:23] VITALS: RESP 16
[2023-01-11 09:24] VITALS: BP 111/79; PULSE 61; TEMP 97.3
[2023-01-11] MEDS: PRENATAL VITAMINS W/ FOLIC ACID TABLET (FP) PO SCH (09:56)
[2023-01-11] MEDS: cloNIDine HCL 0.1 MG TABLET PO SCH (09:56)
== END 2023-01-11 11:06 | disposition home or self-care (01) | DRG 773 ==
LOC: YASAS 14:33 → Y6N 17:59
PROVIDERS: ADMIT Allergy & Immunology; ATTEND Surgery
PROC: HZ2ZZZZ Detoxification Services for Substance Abuse Treatment (ICD-10-PCS; principal; 2023-01-05)
DX: F10.230 Alcohol dependence with withdrawal, uncomplicated (principal); F13.230 Sedative, hypnotic or anxiolytic dependence with withdrawal, uncomplicated; F14.20 Cocaine dependence, uncomplicated; F11.20 Opioid dependence, uncomplicated; F17.210 Nicotine dependence, cigarettes, uncomplicated; F19.282 Other psychoactive substance dependence with psychoactive substance-induced sleep disorder; F25.1 Schizoaffective disorder, depressive type; F31.9 Bipolar disorder, unspecified; E78.5 Hyperlipidemia, unspecified; I10 Essential (primary) hypertension; B18.2 Chronic viral hepatitis C; Z89.022 Acquired absence of left finger(s); Z86.69 Personal history of other diseases of the nervous system and sense organs; Z28.310 Unvaccinated for COVID-19; Z28.9 Immunization not carried out for unspecified reason
CPT/HCPCS: 36415; 80053; 85025; 86780; 87635; 87811; Q0162

== ENCOUNTER 2023-06-12 23:32 | Inpatient (IN) | payer OTHER ==
[2023-06-13 00:02] VITALS: BMI 21.6
[2023-06-13] MEDS ORDERED: NALOXONE HCL 0.4 MG/ML VIAL IM PRN (00:39)
[2023-06-13] MEDS ORDERED: MAGNESIUM HYDROX 2400MG/30ML ORAL SUSPENSION 30 ML CUP PO PRN (00:39)
[2023-06-13] MEDS ORDERED: NALOXONE HCL (KLOXXADO) 8 MG SPRAY NS PRN (00:39)
[2023-06-13] MEDS ORDERED: LOPERAMIDE HCL 2 MG CAPSULE PO PRN (00:39)
[2023-06-13] MEDS ORDERED: IBUPROFEN 400 MG TABLET (FP) PO PRN (00:39)
[2023-06-13] MEDS ORDERED: BISMUTH SUBSALICYLATE 524 MG/30 ML PO PRN (00:39)
[2023-06-13] MEDS ORDERED: BENZOCAINE/MENTHOL (CHLORASEPTIC ) LOZENGE MM PRN (00:39)
[2023-06-13] MEDS ORDERED: POLYETHYLENE GLYCOL (HEALTHYLAX) 3350 17 GM PACKET PO PRN (00:39)
[2023-06-13] MEDS ORDERED: DICYCLOMINE HCL 10 MG CAPSULE PO PRN (00:39)
[2023-06-13] MEDS ORDERED: MAG HYDROX/AL HYDROX/SIMETH 30 ML UNIT-DOSE CUP PO PRN (00:39)
[2023-06-13] MEDS ORDERED: NICOTINE POLACRILEX 2 MG GUM BUC PRN (00:39)
[2023-06-13] MEDS: chlordiazePOXIDE HCL 25 MG CAPSULE PO ONE (00:55)
[2023-06-13] MEDS: IBUPROFEN 600 MG TABLET (FP) PO PRN (02:16)
[2023-06-13] MEDS: chlordiazePOXIDE HCL 25 MG CAPSULE PO SCH (05:11)
[2023-06-13] MEDS ORDERED: methaDONE HCL 10 MG TABLET PO SCH (07:41)
[2023-06-13] MEDS: PRENATAL VITAMINS W/ FOLIC ACID TABLET (FP) PO SCH (10:14)
[2023-06-13] MEDS: NICOTINE 14 MG/24 HOURS TOPICAL PATCH TD SCH (10:15)
[2023-06-13] MEDS: chlordiazePOXIDE HCL 25 MG CAPSULE PO PRN (14:20)
[2023-06-13] MEDS: P-EPHED 60MG/TRIPROLIDI 2.5MG TABLET PO PRN (22:16)
[2023-06-13] MEDS: MELATONIN 5 MG TABLETS PO SCH (22:16)
[2023-06-13] MEDS: THIAMINE HCL 100 MG TABLET (FP) PO SCH (22:17)
[2023-06-13] MEDS: QUEtiapine FUMARATE 100 MG TABLET (FP) PO SCH (22:17)
[2023-06-14] MEDS: ACETAMINOPHEN 325 MG TABLET (FP) PO PRN (05:34)
[2023-06-14] MEDS: chlordiazePOXIDE HCL 25 MG CAPSULE PO SCH (05:35)
[2023-06-14] MEDS: SERTRALINE HCL 50 MG TABLET (FP) PO SCH (10:08)
[2023-06-14 12:30] LABS: HEMATOCRIT 40.1 % (35.4-49); HEMOGLOBIN 13.6 GM/dL (11.7-16.9); MCH 29.2 pg (25.7-33.7); MCHC 33.9 g/dl (32.0-35.9); MEAN CELL VOLUME 86.3 fl (80-96); MEAN PLT VOLUME 8.5 fl (7.5-11.1); PLATELET COUNT 159 10^3/uL (134-434); RBC 4.65 M/mm3 (4.00-5.60); RDW 13.8 % (11.9-15.9); WHITE BLOOD COUNT 3.6 K/mm3 (4.0-10.0)
[2023-06-14 12:35] LABS: POTASSIUM 3.5 mmol/L (3.5-5.1)
[2023-06-14 12:36] LABS: CALCIUM 8.8 mg/dL (8.5-10.1)
[2023-06-14 12:38] LABS: ALBUMIN 3.2 g/dl (3.4-5.0); BLOOD UREA NITROGEN 24.5 mg/dL (7-18)
[2023-06-14 12:41] LABS: CREATININE 0.9 mg/dL (0.55-1.3)
[2023-06-14 12:42] LABS: BILIRUBIN,TOTAL 0.2 mg/dL (0.2-1); TOT PROT 6.2 g/dl (6.4-8.2)
[2023-06-14] MEDS: risperiDONE 1 MG TABLET PO SCH (22:22)
[2023-06-14] MEDS: guaiFENesin 600 MG TABLET.ER (FP) PO PRN (22:26)
[2023-06-15] MEDS ORDERED: chlordiazePOXIDE HCL 10 MG CAPSULE PO PRN
[2023-06-15] MEDS: chlordiazePOXIDE HCL 10 MG CAPSULE PO SCH (05:38)
[2023-06-15] MEDS: ALBUTEROL SO4 HFA INHALER IH PRN (05:42)
[2023-06-15] MEDS: BENZONATATE 200 MG CAPSULE PO PRN (05:42)
[2023-06-15 06:03] VITALS: RESP 16
[2023-06-16] MEDS: chlordiazePOXIDE HCL 10 MG CAPSULE PO SCH (05:53)
[2023-06-16 09:10] VITALS: BP 134/87; PULSE 101
[2023-06-16 09:50] VITALS: TEMP 98.9
[2023-06-17] MEDS ORDERED: chlordiazePOXIDE HCL 10 MG CAPSULE PO ONE (05:00)
== END 2023-06-16 11:23 | disposition home or self-care (01) | DRG 773 ==
LOC: YASAS 23:32 → Y3N 06-13 01:38
PROVIDERS: ADMIT Allergy & Immunology; ATTEND Surgery
PROC: HZ2ZZZZ Detoxification Services for Substance Abuse Treatment (ICD-10-PCS; principal; 2023-06-12)
DX: F10.230 Alcohol dependence with withdrawal, uncomplicated (principal); F13.230 Sedative, hypnotic or anxiolytic dependence with withdrawal, uncomplicated; F11.20 Opioid dependence, uncomplicated; F25.1 Schizoaffective disorder, depressive type; F41.9 Anxiety disorder, unspecified; F32.A Depression, unspecified; E78.5 Hyperlipidemia, unspecified; I10 Essential (primary) hypertension; B18.2 Chronic viral hepatitis C; J45.909 Unspecified asthma, uncomplicated; Z86.69 Personal history of other diseases of the nervous system and sense organs; Z89.022 Acquired absence of left finger(s)
CPT/HCPCS: 0241U-QW; 36415; 80053; 80305; 80307; 85027; 86780; 87635; 87651; 93005; 93010